=== PATIENT | male | born 1985 | race African-American/Black ===

== ENCOUNTER 2016-06-20 03:07 | Emergency (ER) | payer OTHER ==
[2016-06-20 03:39] LABS: HEMATOCRIT 43.5 % (38.0-50.0); MCH 33.1 PG (29.0-34.0); MCHC 35.2 G/DL (30.0-36.0); MCV 94.2 FL (86-99); MEAN PLAT.VOLUME 9.7 uM^3 (9.0-12.4); PLATELET COUNT 234 K/uL (156-360); RBC DIS.WIDTH-CV 13.7 % (11.8-14.6); RBC DIS.WIDTH-SD 47.8 % (39-53); RED BLOOD COUNT 4.62 M/uL (4.00-5.50)
[2016-06-20 03:46] LABS: CHLORIDE 106 mEq/L (99-109); POTASSIUM 3.6 mEq/L (3.7-5.4); SODIUM 144 mEq/L (136-147)
[2016-06-20 03:49] LABS: GLUCOSE 84 mg/dL (70-99)
[2016-06-20 03:50] LABS: ANION GAP 13 MEQ/L (2-14)
[2016-06-20 03:51] LABS: TOTAL BILIRUBIN 0.3 mg/dL (0.0-1.0)
[2016-06-20 03:52] LABS: ALKALINE PHOSPHATASE 88 IU/L (3-129); GFR ESTIMATE (CALCULATED) > 59 mL/min/; SERUM ETHYL ALCOHOL 277 mg/dL
[2016-06-20 03:54] LABS: UREA NITROGEN (BUN) 10 mg/dL (9-23)
[2016-06-20 10:31] VITALS: BP 125/59
== END 2016-06-20 10:33 | disposition home or self-care (01) ==
LOC: EME 03:07
PROVIDERS: Emergency Medicine
DX: S02.2XXA Fracture of nasal bones, initial encounter for closed fracture (principal); F10.129 Alcohol abuse with intoxication, unspecified; Y90.8 Blood alcohol level of 240 mg/100 ml or more; T14.8 Other injury of unspecified body region; Y09 Assault by unspecified means; Y92.830 Public park as the place of occurrence of the external cause
CPT/HCPCS: 70450; 70486; 80053; 81003; 85027; 99281; 99284; G0480

== ENCOUNTER 2016-06-21 18:18 | Emergency (ER) | payer OTHER ==
[~2016-06-21] VITALS: Ht 152.4 cm; Wt 59.5 kg
[2016-06-21 19:25] LABS: EOSINOPHIL (%) 0.8 % (0-5); EOSINOPHIL COUNT 0.1 K/uL (0-0.3); HEMATOCRIT 41.8 % (38.0-50.0); IMMATURE GRANULOCYTE (%) 0.3 % (0.0-0.7); INSTRUMENT ABS NEUTROPHIL CT 7.6 K/uL; LYMPHOCYTE COUNT 3.6 K/uL (1.0-2.8); MCH 32.6 PG (29.0-34.0); MCHC 34.7 G/DL (30.0-36.0); MCV 93.9 FL (86-99); MONOCYTE (%) 7.5 % (3-12); MONOCYTE COUNT 0.9 K/uL (0-0.8); NEUTROPHIL (%) 61.6 % (45-76); NEUTROPHIL COUNT 7.6 K/uL (1.8-6.4); PLATELET COUNT 223 K/uL (156-360); RBC DIS.WIDTH-CV 13.5 % (11.8-14.6); RED BLOOD COUNT 4.45 M/uL (4.00-5.50); WHITE BLOOD COUNT 12.3 K/uL (4.1-10.2)
[2016-06-21 19:47] LABS: CHLORIDE 103 mEq/L (99-109); POTASSIUM 3.1 mEq/L (3.7-5.4); SODIUM 143 mEq/L (136-147)
[2016-06-21 19:50] LABS: ANION GAP 15 MEQ/L (2-14)
[2016-06-21 19:52] LABS: SERUM ETHYL ALCOHOL 260 mg/dL
[2016-06-21 19:53] LABS: ALKALINE PHOSPHATASE 77 IU/L (3-129); GFR ESTIMATE (CALCULATED) > 59 mL/min/
[2016-06-21 19:54] LABS: UREA NITROGEN (BUN) 7 mg/dL (9-23)
[2016-06-21 19:58] LABS: GLUCOSE 109 mg/dL (70-99); TOTAL BILIRUBIN 0.7 mg/dL (0.0-1.0)
[2016-06-22 02:26] VITALS: BP 115/68
== END 2016-06-22 02:27 | disposition home or self-care (01) ==
LOC: EME 18:18
PROVIDERS: Emergency Medicine
DX: F10.129 Alcohol abuse with intoxication, unspecified (principal); R45.1 Restlessness and agitation; F31.9 Bipolar disorder, unspecified
CPT/HCPCS: 80053; 85025; 99281; 99285; G0480; J1630; J2060